=== PATIENT | male | born 1985 | race Caucasian/White ===

== ENCOUNTER 2024-10-16 18:23 | Emergency (ER) | payer OTHER, SELFPAY ==
[2024-10-16 18:26] VITALS: BP 149/88
[2024-10-16 18:49] LABS: % Basophils 0.6 % (0-2); % Immature Granulocytes 0.2 % (0-0.5); % Lymphocytes 37.1 % (20.5-51.1); % Monocytes 8.3 % (1.7-9.3); % Neutrophils 50.8 % (42.2-75.2); Absolute Eosinophils 0.2 10^3/uL (0-0.7); Absolute Lymphocytes 1.9 10^3/uL (1.2-3.4); Absolute Monocytes 0.4 10^3/uL (0.1-0.6); Absolute Neutrophils 2.6 10^3/uL (1.4-6.5); Hematocrit 44.2 % (39.0-52.0); Mean Corp Hgb Conc. 33.9 g/dL (33.0-37.0); Mean Corpuscular Hgb 28.6 pg (27.0-31.0); Mean Corpuscular Volume 84.4 fL (80.0-94.0); Mean Platelet Volume 10.1 fL (7.4-10.4); Nucleated Red Blood Cells % 0 % (-); Platelet Count 186 10^3/uL (130-400); Red Blood Cell Count 5.24 10^6/uL (4.70-6.10); Red Cell Dist. Width 11.4 % (11.5-14.5); White Blood Cell Count 5.1 10^3/uL (4.8-10.8)
[2024-10-16 19:04] LABS: ALT (SGPT) 31 U/L (0-50); AST (SGOT) 26 U/L (17-59); Albumin 4.7 g/dl (3.5-5.0); Alkaline Phosphatase 46 U/L (38-126); Blood Urea Nitrogen 23 mg/dl (9-20); Calcium 9.5 mg/dl (8.4-10.2); Carbon Dioxide 32 mmol/L (22-30); Chloride 100 mmol/L (98-107); Glucose 79 mg/dl (70-99); Potassium 4.3 mmol/L (3.5-5.1); Sodium 139 mmol/L (135-145); Total Bilirubin 0.5 mg/dl (0.2-1.3); Total Protein 7.5 g/dl (6.3-8.2); eGFR > 60.00
--- NOTE | 2024-10-16 22:08 | ED.GENMED ---
History of Present Illness
General
Chief Complaint: Headache
Source: patient
Exam Limitations: none
Time Seen by Provider: 10/16/24 21:45
History of Present Illness
History of Present Illness:
38-year-old male presents with ongoing headache over the past 3 weeks. Its gradually worsening headache. He denies any sudden onset severe headaches. No associated vision change. It tends to be behind his right eye radiate down the back of the
right side of the head and occasionally moves to the left side of the back of the head. No significant neck pain or paresthesias. No fevers. No injury. He denies double vision or loss of vision. He was seen by the eye doctor this week for this
discomfort and the eye was normal. He has been using Excedrin. No other complaints at this time
Past History
Past History
ED Past Medical History: None
ED Past Surgical History: None
Social History
Tobacco: Non-smoker
Personal: Single
Living: with family
Employment: Employed
Phy Exam
Physical Exam
Physical Exam:
General: Well-appearing male nontoxic no acute respiratory distress
HEENT: Normocephalic atraumatic pupils equal round react light extraocular's are intact no nystagmus
Neurologic exam: Alert normal gait conversing appropriately no facial asymmetry or slurred speech. No aphasia no tenderness over the temporal artery
Musculoskeletal exam: Cervical spine is nontender with full range of motion
Course
Orders/Labs/Results
Orders:
Orders
10/16/24 18:29
CT Head W/o Iv Contrast Urgent
Comment:
Reason For Exam: headache x3 weeks, pressure behind r eye
10/16/24 18:33
Complete Blood Count/With Diff Urgent
Comprehensive Metabolic Panel Urgent
Abnormal Lab Results
10/16/24
18:33
RDW 11.4 L %
(11.5-14.5)
Carbon Dioxide 32 H mmol/L
(22-30)
BUN 23 H mg/dl
(9-20)
10/16/24 18:33
10/16/24 18:33
Vital Signs
Initial and Last Documented VS:
Initial Vital Signs
Temp Pulse Resp BP Pulse Ox
97.9 F 72 16 149/88 100
10/16/24 18:26 10/16/24 18:26 10/16/24 18:26 10/16/24 18:26 10/16/24 18:26
Last Documented Vital Signs
Temp Pulse Resp BP Pulse Ox
97.9 F 72 16 149/88 100
10/16/24 18:26 10/16/24 18:26 10/16/24 18:26 10/16/24 18:26 10/16/24 18:26
MDM/Problems Addressed
Differential Diagnosis Includes:
Headache ongoing. Patient does not describe sudden onset severe headache. This has been ongoing for 3 weeks. No fever to suggest infectious source. No neurologic deficit with this headache. Workup was initiated through triage which shows normal
labs. CT demonstrates Chiari I malformation. Hard to say if patient's headache is from CT finding. Offered headache cocktail for relief however he declined and wishes to follow-up with his family doctor. No indication for any further
intervention. Stable for discharge
*Critical Care Note
Total Time (30-74mins, 75-104mins- exclusive of procedures): Not Applicable
ED Attending Note
-
Portions of this chart may have been created with voice recognition software.� Occasional wrong word or��sound alike� substitutions may have occurred due to the inherent limitations of voice recognition software.
Discharge Plan
Departure
Patient Disposition: Home (Routine Discharge)
Date of Disposition: 10/16/24
Time of Disposition: 22:11
Patient with high blood pressure during this ER visit?: No
Discharge Problem:
Headache
Instructions: Headache, Adult (DC)
Prescriptions:
No Action
ondansetron 4 MG tablet,disintegrating
4 mg PO TIDPRN PRN (Reason: nausea/vomiting) Qty: 12 0RF
Activity Restrictions/Additional Instructions:
Continue with [id number] medicines. Please follow-up with your family doctor as planned. Return here if worse otherwise. As dorsalis was a Chiari I malformation on your CAT scan. It is unclear if this is the source of your headache
Discharge Date and Time
Print Language: H[place] KONGER
[2024-10-16 22:30] VITALS: BP 143/71
== END 2024-10-16 22:30 | disposition home or self-care (01) ==
LOC: EMR 18:23
PROVIDERS: Emergency Medicine; EMERGENCY PHYSICIAN Emergency Medicine; FAMILY PHYSICIAN Family Medicine
DX: R51.9 Headache, unspecified (principal); G93.5 Compression of brain
CPT/HCPCS: 99284; 70450; 80053; 85025

== ENCOUNTER 2025-05-30 21:41 | Emergency (ER) | payer OTHER, SELFPAY ==
[2025-05-30 21:43] VITALS: BP 137/93
[2025-05-30 22:03] LABS: Hematocrit 41.6 % (39.0-52.0); Hemoglobin 14.4 g/dL (13.0-18.0); Mean Corp Hgb Conc. 34.6 g/dL (33.0-37.0); Mean Corpuscular Volume 83.0 fL (80.0-94.0); Nucleated Red Blood Cells % 0 % (-); Platelet Count 155 10^3/uL (130-400); Red Cell Dist. Width 11.6 % (11.5-14.5)
[2025-05-30 22:21] LABS: ALT (SGPT) 43 U/L (0-50); AST (SGOT) 27 U/L (17-59); Albumin 4.4 g/dl (3.5-5.0); Alkaline Phosphatase 44 U/L (38-126); Blood Urea Nitrogen 19 mg/dl (9-20); Calcium 9.6 mg/dl (8.4-10.2); Carbon Dioxide 26 mmol/L (22-30); Chloride 105 mmol/L (98-107); Glucose 103 mg/dl (70-99); Potassium 3.9 mmol/L (3.5-5.1); Sodium 138 mmol/L (135-145); Total Protein 7.4 g/dl (6.3-8.2); eGFR > 60.00
[2025-05-30 23:58] VITALS: BP 135/73
[2025-05-31] VITALS: BP 138/76
--- NOTE | 2025-05-31 00:49 | ED.GENMED ---
History of Present Illness
General
Chief Complaint: Fever
Source: patient
Exam Limitations: none
Time Seen by Provider: 05/31/25 00:31
Nursing documentation reviewed up to this point in time: agreed with
History of Present Illness
History of Present Illness:
Note:
CHIEF COMPLAINT(S)
Abdominal discomfort and fever
HISTORY OF PRESENT ILLNESS
The patient is a 39-year-old male who presents with abdominal pain and fever following a recent vasectomy performed a few days ago. The abdominal pain began the afternoon following the procedure and initially improved but intensified this morning.
The pain is primarily localized to the lower abdomen around the pubic symphysis and is more pronounced on the left side. He denies any scrotal pain, though he reports a history of soreness from the recent surgery which has been improving. The
patient notes having experienced similar abdominal pain in the past prior to the procedure and has been evaluated in the emergency department with a CT scan and was unremarkable and he has seen his urologist for it. He describes the current episode
as more intense than previous occurrences. Associated symptoms include fever, which began around the time of symptom onset, but no chills, vomiting, diarrhea, or changes in bowel movements. The fever responds temporarily to acetaminophen (Tylenol),
which he takes in extra strength prior to physical activity but has not taken since earlier today.
Additionally, the patient reports a mild cough and scratchy throat, although he denies shortness of breath. He mentions his daughter recently had a cough, but otherwise, he has had no known significant exposure to illness. There is no history of
recent tick bites. Patient is currently taking doxycycline as prescribed by his urologist.
REVIEW OF SYSTEMS
- Gastrointestinal: Abdominal pain localized to the lower abdomen, more intense than previous episodes. No nausea, vomiting, diarrhea, or constipation.
- Respiratory: Mild cough and scratchy throat. No shortness of breath.
- General: Reports fever with response to acetaminophen.
PHYSICAL EXAM
General: Alert, no acute distress.
Skin: Warm, dry.
Head: Normocephalic, atraumatic.
Neck: Supple, trachea midline.
Eyes, Ears, Nose, Mouth, and Throat: Oral mucosa moist.
Cardiovascular: Mild tachycardia noted, otherwise regular rhythm, no murmurs. Normal peripheral perfusion, no edema.
Respiratory: Respirations are non-labored.
Gastrointestinal: Abdomen is soft and non-tender to palpation
Neurological: Alert and oriented to person, place, time, and situation, no focal neurological deficit observed.
Psychiatric: Cooperative, appropriate mood and affect.
PROBLEM LIST
Acute Problems:
- Abdominal pain post-vasectomy
- Fever post-vasectomy
PLAN
1. Perform a CT scan of the abdomen and pelvis
2. Conduct a chest X-ray due to fever and respiratory symptoms to rule out pneumonia.
3. Obtain urinalysis to check for any urinary tract infection or other related causes.
4. Administer intravenous Toradol for pain and inflammation management.
5. Monitor vital signs and symptomatic response, reassess based on diagnostic findings.
6. Provide supportive care, including hydration and antipyretics as necessary.
7. Viral testing
DIFFERENTIAL DIAGNOSIS
The Differential Diagnosis includes, in no particular order and is not limited to:
1. Post-operative infection or abscess
2. Hernia exacerbated by recent surgery
3. Urinary tract infection
4. Lower respiratory tract infection or pneumonia
5. Musculoskeletal strain or trauma
6. Gastrointestinal upset or obstruction
7. Epididymitis or orchitis
8. Testicular torsion or hematoma
9. Viral illness with respiratory components
10. Non-specific post-operative pain or inflammation
CHART REVIEW
- Reviewed ER physician documentation from 10/16/24 patient seen for ongoing headache he had unremarkable workup and was discharged
- Reviewed notes from April 04, 2025 patient had general wellness exam had unremarkable workup
- No discharge summaries in [facility] to review
MDM/DISPOSITION
The patient is a 39-year-old male who presents with abdominal pain and fever following a recent vasectomy performed a few days ago. He notes a discomfort in the pelvic region. He had pain in this area prior to the procedure and has been seen by
urology and had a CAT scan for it in the past as this time was attributed to musculoskeletal cause. Patient's 3 may have hernia. Patient denies any burning with urination. Today, he developed a fever and does note associated coughing. He reports
that his child was sick with similar symptoms. On exam he is well-appearing in no acute distress. His abdomen soft and nontender. He denies any testicular pain currently.
In review his blood work, he has mild leukocytopenia he tested positive for COVID-19. This is consistent with his fever he is having and his current viral illness. Suspect to be etiology of fever. Doubt intra-abdominal pathology doubt post
procedural infection. Patient's urinalysis is negative. Discussed follow-up with primary and follow-up with his urologist calling him and seeing he was seen in the ER. Patient expressed understanding. Patient stable for discharge.
Past History
Past History
ED Past Medical History: None
ED Past Surgical History: None
Social History
Tobacco: Non-smoker
Personal: Single
Living: with family
Employment: Employed
Review of Systems
Review of Systems
All Other Systems: ROS reviewed and negative except as documented in HPI and ROS
Phy Exam
Physical Exam
Physical Exam:
see hpi
Sepsis
Sepsis Screening
Sepsis Assessment: Sepsis Ruled Out
Sepsis Screen
Sepsis Screen: Sepsis Ruled Out
Date: 05/31/25
Time: 07:40
Course
Orders/Labs/Results
Orders:
Orders
05/30/25 21:56
Complete Blood Count/With Diff Urgent
Comprehensive Metabolic Panel Urgent
Lactate Level [Lactic Acid] Urgent
Lipase Urgent
Comment: ADDED
05/31/25 00:47
CT Abd/pelvis W Iv Cont Urgent
Comment:
Reason For Exam: left sided pelvic pain
0.9% Sodium Chloride 500 ml [Nss] 500 ml IV BOLUS
Acetaminophen [Tylenol] 500 mg PO NOW STA
Ketorolac [Toradol] 15 mg IV NOW STA
05/31/25 00:48
Add On- LAB Urgent
Tests Added?: lipase
CR Chest - 2 Views Urgent
Comment:
Reason For Exam: cough
05/31/25 01:20
COVID-19 Antigen Urgent
Source: Nasal Swab
Influenza A+B Rapid Molecular Urgent
BETTY Source: Nasal Swab
Specimen Description:
05/31/25 03:42
Urinalysis Reflex To Culture Urgent
Date Specimen was Collected: 05/31/25
Time Specimen was Collected: 03:40
Urine Microscopic Reflex Cult Urgent
Abnormal Lab Results
05/30/25 05/31/25 05/31/25
21:56 01:20 03:42
WBC 3.9 L 10^3/uL
(4.8-10.8)
Absolute Lymphs (auto) 0.3 L 10^3/uL
(1.2-3.4)
Neutrophils % 79.9 H %
(42.2-75.2)
Lymphocytes % 6.9 L %
(20.5-51.1)
Monocytes % 9.9 H %
(1.7-9.3)
Glucose 103 H mg/dl
(70-99)
Lactic Acid 0.6 L mmol/L
(0.7-2.0)
Urine Albumin (Reflex) 1+ A
(Neg - Trace)
SARS-CoV-2 Antigen Positive A
(Negative)
05/30/25 21:56
05/30/25 21:56
Vital Signs
Initial and Last Documented VS:
Initial Vital Signs
Temp Pulse Resp BP Pulse Ox
101.2 F H 119 20 137/93 95
05/30/25 21:43 05/30/25 21:43 05/30/25 21:43 05/30/25 21:43 05/30/25 21:43
Last Documented Vital Signs
Temp Pulse Resp BP Pulse Ox
100.2 F 113 14 115/65 96
05/31/25 01:34 05/31/25 01:30 05/31/25 01:30 05/31/25 03:00 05/31/25 03:30
*Pulse Oximetry
SaO2: 95
Oxygen Mode of Delivery: Room air
Patient hypoxic: no
*Critical Care Note
Total Time (30-74mins, 75-104mins- exclusive of procedures): Not Applicable
ED Attending Note
-
Portions of this chart may have been created with voice recognition software.� Occasional wrong word or��sound alike� substitutions may have occurred due to the inherent limitations of voice recognition software.
Discharge Plan
Departure
Patient Disposition: Home (Routine Discharge)
Date of Disposition: 05/31/25
Time of Disposition: 04:31
Patient with high blood pressure during this ER visit?: Yes
Condition: Good
Discharge Problem:
COVID-19
Instructions: Fever, Adult (DC), Viral Syndrome (DC), BLOOD PRESSURE
Prescriptions:
No Action
ondansetron 4 MG tablet,disintegrating
4 mg PO TIDPRN PRN (Reason: nausea/vomiting) Qty: 12 0RF
Referrals:
Mateo Rodriguez DO [Family Provider, Family Practice]
Activity Restrictions/Additional Instructions:
Please follow up with your urologist and let them know you are seen in the ER.
Your blood work is unremarkable. Your urinalysis does not show signs concerning for infection. You did test positive for COVID 19. You can take Tylenol and Motrin as needed for your fever.
PLEASE RETURN TO THE ER SHOULD YOU DEVELOP BURNING WITH URINATION, BLOOD IN YOUR URINE, ACUTE WORSENING OF YOUR PAIN, INTRACTABLE NAUSEA OR VOMITING, CHEST PAIN OR SHORTNESS OF BREATH, OR ANY OTHER SIGNS OR SYMPTOMS WORRISOME TO YOU.
Interventions
Interventions:
*Risk Screen - Suicide Last Done: 05/30/25 21:43
*General Assessment Last Done: 05/30/25 21:43
*Neglect/Abuse Screening Last Done: 05/30/25 21:43
*ED- Fall Risk Assessment Last Done: 05/31/25 01:35
*ED COVID-19 Vaccine History Last Done: 05/30/25 21:48
*Nursing Disposition Last Done: 05/31/25 04:57
ED- Neurological Assessment Last Done: 05/31/25 01:35
Discharge Date and Time
Discharge Date/Time: 05/31/25 04:57
Print Language: [id number]
[2025-05-31 01:00] VITALS: BP 139/70
[2025-05-31 01:25] LABS: Lipase 54 U/L (23-300)
[2025-05-31] MEDS: NSS 500 IV (01:25)
[2025-05-31] MEDS: TORADOL 15 MG IV (01:30)
[2025-05-31] MEDS: TYLENOL 500 MG PO (01:30)
[2025-05-31 01:34] VITALS: BMI 22.2
[2025-05-31 01:41] LABS: COVID-19 Antigen Positive (Negative)
[2025-05-31 03:00] VITALS: BP 115/65
[2025-05-31 04:22] LABS: Urine Character Clear (Clear)
[2025-05-31 04:34] LABS: Urine Squamous Cell None seen /LPF (Few)
[2025-05-31 04:36] LABS: Urine Red Blood Cell None Seen /HPF (0-2); Urine White Cell 0-2 /HPF (0-5)
== END 2025-05-31 04:57 | disposition home or self-care (01) ==
LOC: EMR 21:41
PROVIDERS: Emergency Medicine; Physician Assistant; EMERGENCY PHYSICIAN Emergency Medicine; FAMILY PHYSICIAN Family Medicine; REFERRING PHYSICIAN Urology
DX: U07.1 COVID-19 (principal); R10.30 Lower abdominal pain, unspecified
CPT/HCPCS: 96374; 96361; 99284; 71046; 74177; 80053; 81003; 81015; 83605; 83690; 85025; 87502; 87811; Q9967